=== PATIENT | female | born 1940 | race Caucasian/White ===

== ENCOUNTER 2017-04-03 19:41 | Emergency (ER) | payer OTHER, MEDICAID ==
--- NOTE | 2017-04-03 21:12 | CT REPORT ---
HISTORY: Fall, trauma. COMPARISON: None. TECHNIQUE: Axial non-contrast images obtained from skull vertex through foramen magnum. Dose reduction technique was utilized. FINDINGS: There is no atrophy. There is no hemorrhage. There is no hydrocephalus. No mass lesion is identifi ed. Cantu white differentiation adequate, there is no infarction. No midline shift is identified. T he paranasal sinuses are clear. IMPRESSION: No acute intracranial head CT abnormality. Final Electronic Signature: This report was electronically signed by Pete Hernandez MD on 04/03/2017 9 :10 PM. [email or web address] / / [facility] [phone]
--- NOTE | 2017-04-03 21:22 | CT REPORT ---
HISTORY: Trauma, facial injury. COMPARISON: None. TECHNIQUE: This examination was performed using automated exposure control, adjustment of mA or kV according to patient size, and/or use of iterative reconstruction technique. Axial noncontrast images of the sinus es obtained with multiplanar reformat images. FINDINGS: There is no evidence of acute facial fracture. The mandible and temporomandibular joints appear intac t. The globes and orbital structures are unremarkable. There are degenerative changes of the upper ce rvical spine noted. Imaged mastoid air cells and middle ear structures clear. IMPRESSION: No evidence of acute facial fracture Final Electronic Signature: This report was electronically signed by Pete Hernandez MD on 04/03/2017 9 :20 PM. [email or web address] / / [facility] [phone]
--- NOTE | 2017-04-03 21:25 | CT REPORT ---
HISTORY: Fall, trauma. COMPARISON: None. TECHNIQUE: This examination was performed using automated exposure control, adjustment of mA or kV according to patient size, and/or use of iterative reconstruction technique. Multiple contiguous transaxial image s of the pelvis were obtained from the mid abdomen through the pubic symphysis without IV contrast. FINDINGS: There are degenerative changes of the lumbar spine. 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 Degenerative change of the right greater than left sacroiliac joint noted with chr onic appearing ossicle along the anterior margin of the right sacroiliac joint. No intraperitoneal pe lvic hematoma identified. There is significant subcutaneous fat stranding within the left buttock and left hip, likely indicati ng contusion. The bones are osteopenic. If high clinical concern for a radiographically occult proximal femoral fra cture is present, a noncontrast MRI could be obtained. There is colonic diverticulosis. A small fat-containing umbilical hernia is noted. IMPRESSION: No acute pelvic fracture. Prominent soft tissue contusion within the subcutaneous soft tissues of left buttock and left lateral hip. Colonic diverticulosis. Final Electronic Signature: This report was electronically signed by Pete Hernandez MD on 04/03/2017 9 :23 PM. [email or web address] / / [facility] [phone]
--- NOTE | 2017-04-03 21:27 | CT REPORT ---
HISTORY: Fall, trauma. COMPARISON: None. TECHNIQUE: This examination was performed using automated exposure control, adjustment of mA or kV according to patient size, and/or use of iterative reconstruction technique. Axial thin section images obtained f rom skull base through head of the clavicles. Sagittal and coronal reformat images obtained. FINDINGS: There is advanced multilevel degenerative disc disease throughout the cervical spine. There is degene rative retrolisthesis C3-C4, C4-C5 and degenerative anterolisthesis of C5-C6. There is mild superior endplate cupping of the T3 vertebral body without bony retropulsion on sagittal image 19, series 4. T his is compatible with an age-indeterminate mild superior endplate compression fracture. Advanced deg enerative change at the C1-C2 articulation right lateral mass noted with small chronic appearing bailey icated ossicles but no acute fracture. There is multilevel facet arthrosis at multiple levels. There is multilevel degenerative disc disease and facet arthrosis of the cervical spine, contributing to multilevel foraminal stenosis, with bony foraminal narrowing greater on the left than right at C3 -C4, bilaterally at C4-C5, bilaterally at C5-C6. Results were communicated to PEDRO PABLO AGUILAR MD at 04/03/2017 9:24 PM. IMPRESSION: Mild superior endplate compression deformity of T3 vertebral body of indeterminate age. No bony retro pulsion. Multilevel degenerative changes throughout the cervical spine without additional evidence of acute fr acture. Final Electronic Signature: This report was electronically signed by Pete Hernandez MD on 04/03/2017 9 :24 PM. [facility] / [facility] [phone]
--- NOTE | 2017-04-04 06:18 | RADIOLOGY REPORT ---
Two limited views of the left humerus demonstrates no displaced fracture. Limited views of the joints are unremarkable. IMPRESSION: No displaced injury is identified. If clinically indicated, further evaluation and/or follow-up may be of benefit. JOVAN
--- NOTE | 2017-04-04 08:40 | ER PHYSICIAN DOCUMENTATION ---
Physician Documentation [facility] Name:Sherron Salvador Age:76 yrs Sex:Female :1940 Arrival Date:04/03/2017 Time:19:41 Bed6 Private MD: Yung Cardenas Disposition: 04/03/17 22:32 Discharged to Home/Self Care. Impression: Hip Contusion - left, Shoulder Contusion - left, Scalp Abrasion, left upper arm skin tear, superficial, 3cm, T3 superior endplate vertebral body fracture, initial encounter. - Condition is Good. - Discharge Instructions: CONTUSION, Upper Extremity, HIP CONTUSION, SHOULDER CONTUSION. - Medical Reconciliation form form. - Follow up: Private Physician; When: 4- 6 days. - Problem is new. - Symptoms have improved. HPI: 04/03 22:22 This 76 yrs old Female presents to ER via Wheelchair with complaints of Fall ak Injury - LEFT SIDE. 22:22 Onset: The symptom(s)/episode began/occurred just prior to arrival. Associated ak injuries: The patient sustained injury to the head. Associated signs and symptoms: Pertinent negatives: abdominal pain, blurred vision, chest pain, confusion, headache, incontinence, memory problems, nausea, numbness, pelvic pain, shortness of breath, seizure, tingling, vomiting, weakness. has had an insidious instability of gait that pt has been seen for, apparently felt secondary to worsening scoliosis, has known osteopenia and worsening changes. states was walking today, slipped with foot, landing on left side, did hit head, no loc, no confusion, no mendoza. not on blood thinners. c/o pain to left upper arm, left hip, abrasion to arm, abrasion to head. denies numb/ting/weak/abd pain/deep cp/lateral cp/sob. . Historical: - Allergies: No known drug Allergies; - Home Meds: 1. anastrozole oral 2. losartan oral 3. venlafaxine oral 4. Advil Oral 5. biotin oral - Tetanus: < 10 years < 10 years. - Ebola Screening: : Patient negative for fever greater than or equal to 101.5 degrees Fahrenheit, and additional compatible Ebola Virus Disease symptoms. Patient denies exposure to infectious person. Patient denies travel to an Ebola-affected area in the 21 days before illness onset. No symptoms or risks identified at this time. . - Family history: No immediate family members are acutely ill. - Social history: Smoking status: Patient states was never smoker of tobacco. - Immunization history: Flu Vaccine < 1 year. ROS: 22:24 Constitutional: Negative for fever, chills, and weight loss. ak Cardiovascular: Negative for chest pain, palpitations, and edema. Respiratory: Negative for shortness of breath, cough, wheezing, and pleuritic chest pain. 22:24 Abdomen/GI: Negative for abdominal pain, nausea, vomiting, diarrhea, and constipation. ak 22:24 MS/extremity: Positive for injury or acute deformity. 22:24 Skin: Positive for abrasion(s), Negative for puncture. 22:24 All other systems are negative. Exam: 22:25 Constitutional: This is a well developed, well nourished patient who is awake, alert, ak and in no acute distress. 22:25 Constitutional: The patient appears alert, awake. 22:25 Head/face: abrasion to head, mild, superficial, to calvarium. also small sts and bruise to L zygoma, no gross deformity. no tmj pain. no midline cervical pain. neuro intact. crisp interaction. 22:25 Neck: not intoxicated clinically and pt denies any intoxicating substances. neuro intact. nontender midline and no pain with mvmt.. 22:25 Chest/axilla: Inspection: normal, Palpation: is normal. 22:25 Cardiovascular: Rate: normal, Rhythm: regular, Pulses: no pulse deficits are appreciated. 22:25 Respiratory: the patient does not display signs of respiratory distress, Respirations: normal, nontender chest. 22:25 Abdomen/GI: Inspection: abdomen appears normal, Palpation: abdomen is soft and non-tender. 22:25 Musculoskeletal/extremity: small superficial skin tear L upper arm. some bruising noted to upper arm, shoulder, no gross deform, neurovasc intact. small dorsal FA bruise, nontender, no gross deform, neuro intact, also has some ttp over L hip with palp from lateral/post aspect, none from ant. nv intact. . 22:25 Neuro: Orientation: is normal, Mentation: is normal, Memory: is normal, Cranial nerves: grossly normal, Motor: is normal, Sensation: is normal. Vital Signs: 19:58 BP 141 / 68; Pulse 68; Resp 14; Pulse Ox 96% on R/A; Weight 72.57 kg; Height 5 ft. 0 em1 in. (152.40 cm); Pain 5/10; 21:09 BP 137 / 70; Pulse 91; Resp 18; Pulse Ox 96% on R/A; bw2 22:41 BP 124 / 66; Pulse 78; Resp 18; Pulse Ox 95% on R/A; Pain 3/10; bw2 19:58 Body Mass Index 31.25 (72.57 kg, 152.40 cm) em1 Trauma Score (Adult): 20:03 Eye Response: spontaneous(1); Verbal Response: oriented(1); Motor Response: obeys bw2 commands(2); Systolic BP: > 89 mm Hg(4); Respiratory Rate: 10 to 29 per min(4); [place] Score: 15; Trauma Score: 12 MDM: 20:12 Patient medically screened. ak 22:28 Differential diagnosis: closed head injury, contusion, fracture, laceration, hip ak fracture, spine fracture. Data reviewed: vital signs, nurses notes, radiologic studies, CT scan, plain films, and as a result, I will discharge patient. ED course: well appearing, doing well, need to exclude hip fx, aich, facial fx. reviewed films c rads, did note small t3 fx, unclear if acute or not but given hx of osteopenia, other hx/scoliosis, ? age, no pain in this location either, will d/c c precautions, no lifting over 10 lb. f/u pcp. no need for tlso. did cspine ct given fall and age but low index susp. 04/03 21:15 Order name: CAT SCAN; HEAD W/O CON [id number] EDMS 04/03 21:23 Order name: CATSCAN;MAXILLOFAC W/O [id number] EDMS 04/03 21:26 Order name: CAT SCAN; PELVIS W/O CON [id number] EDMS 04/03 21:27 Order name: CAT SCAN; CERVICAL [id number] EDMS 04/04 07:50 Order name: [place] [id number] EDMS Dispensed Medications: No medications were administered Signatures: Maci Hagen bw2 Yung Gomez MD MD ak
--- NOTE | 2017-04-04 08:40 | ER NURSING DOCUMENTATION ---
Nurse's Notes [facility] Name:Sherron Salvador Age:76 yrs Sex:Female :1940 Arrival Date:04/03/2017 Time:19:41 Bed6 Private MD: Diagnosis:Hip Contusion-left;Shoulder Contusion-left;Scalp Abrasion;left upper arm skin tear, superficial, 3cm;T3 superior endplate vertebral body fracture, initial encounter Presentation: 04/03 19:54 Acuity: FARZANEH 4 rh 19:58 Presenting complaint: Patient states: she fell from a flight of steps. pt has abraision bw2 to scalp, abrasion to left shoulder. brusing to left hip. pt denies LOC. pt has brusing to left upper arm, pt denies blood thinners. pt family states that pt is acting her normal. pt is alert and oriented. Presenting complaint: Patient states: pt placed in c collar, pt complains of neck pain. Care prior to arrival: None. Mechanism of Injury: Fall down 8 steps. Trauma event details: Injury occurred in the [facility] Injury occurred at home. Injury occurred April 03, 2017 Injury occurred at 18:00. 19:58 Acuity: FARZANEH 2 bw2 19:58 Method Of Arrival: Wheelchair bw2 22:04 Transition of care: Home. bw2 Historical: - Allergies: No known drug Allergies; - Home Meds: 1. anastrozole oral 2. losartan oral 3. venlafaxine oral 4. Advil Oral 5. biotin oral - Tetanus: < 10 years < 10 years. - Ebola Screening: : Patient negative for fever greater than or equal to 101.5 degrees Fahrenheit, and additional compatible Ebola Virus Disease symptoms. Patient denies exposure to infectious person. Patient denies travel to an Ebola-affected area in the 21 days before illness onset. No symptoms or risks identified at this time. . - Family history: No immediate family members are acutely ill. - Social history: Smoking status: Patient states was never smoker of tobacco. - Immunization history: Flu Vaccine < 1 year. Screenin:03 Abuse screen: Denies threats or abuse. Nutritional screening: No deficits noted. bw2 Tuberculosis screening: No symptoms or risk factors identified. 20:05 Infectious Disease Risk None. bw2 Primary Survey: 20:03 Airway: patent. Breathing/Chest: Respiratory pattern: regular. Circulation: Pulses: bw2 palpable right dorsalis pedis artery and left dorsalis pedis artery. Skin color: pink. Assessment: 20:02 General: Appears in no apparent distress, Behavior is appropriate for age, cooperative. bw2 Pain: Complains of pain in left arm. left hip. neck pain. left shoulder. Neuro: Reports headache in entire. Respiratory: No deficits noted. Breath sounds are clear bilaterally. GI: No deficits noted. : No deficits noted. 20:04 See Triage Assessment done by same RN. bw2 Vital Signs: 19:58 BP 141 / 68; Pulse 68; Resp 14; Pulse Ox 96% on R/A; Weight 72.57 kg; Height 5 ft. 0 em1 in. (152.40 cm); Pain 5/10; 21:09 BP 137 / 70; Pulse 91; Resp 18; Pulse Ox 96% on R/A; bw2 22:41 BP 124 / 66; Pulse 78; Resp 18; Pulse Ox 95% on R/A; Pain 3/10; bw2 19:58 Body Mass Index 31.25 (72.57 kg, 152.40 cm) em1 Trauma Score (Adult): 20:03 Eye Response: spontaneous(1); Verbal Response: oriented(1); Motor Response: obeys bw2 commands(2); Systolic BP: > 89 mm Hg(4); Respiratory Rate: 10 to 29 per min(4); [place] Score: 15; Trauma Score: 12 ED Course: 19:48 Patient arrived in ED. jl 19:54 Triage completed. rh 19:55 Yung Gomez MD is Attending Physician. ak 19:57 Maci Hagen is Primary Nurse. bw2 20:04 Patient has correct armband on for positive identification. Placed in gown. Bed in low bw2 position. Side rails up X2. 20:05 Valuables Remains with patient. bw2 20:[address] monica 21:03 Patient moved back from [address] monica 22:02 Wound care to abrasion, located on left shoulder was cleaned with soap and water, bw2 dressed with bacitracin Patient tolerated well. 22:03 Wound care to skin tear located on left upper arm was cleaned with soap and water, bw2 dressed with bacitracin 4X4s, Kerlix, Vaseline gauze, Patient tolerated well. Administered Medications: No medications were administered Outcome: 22:04 Instructed on [facility] 22:32 Discharge ordered by . ak 22:41 Discharged to home ambulatory, with family. 2 : Condition: good 22:42 Patient left the ED. [facility] 04/04 16:18 Discharge F/U Call: Unable to reach: no answer st Signatures: Emily Linton, RN RN st Sam, Margarita anderson [facility], [facility] em1 Maria G Canseco Xiao, [facility]2 Benjamin Armstrong Alexander, MD MD ak
== END 2017-04-03 22:43 | disposition home or self-care (01) ==
LOC: ER 19:41
DX: S70.02XA Contusion of left hip, initial encounter (principal); S40.012A Contusion of left shoulder, initial encounter; S00.01XA Abrasion of scalp, initial encounter; S41.112A Laceration without foreign body of left upper arm, initial encounter; S22.039A Unspecified fracture of third thoracic vertebra, initial encounter for closed fracture; S09.90XA Unspecified injury of head, initial encounter; R26.89 Other abnormalities of gait and mobility; W01.0XXA Fall on same level from slipping, tripping and stumbling without subsequent striking against object, initial encounter; Y92.019 Unspecified place in single-family (private) house as the place of occurrence of the external cause; Y93.01 Activity, walking, marching and hiking; Z79.899 Other long term (current) drug therapy
CPT/HCPCS: 70450; 70486; 72125; 72192; 99284